=== PATIENT | male | born 1975 | race Caucasian/White ===

== ENCOUNTER 2016-11-28 15:53 | Emergency (ER) | payer OTHER ==
[~2016-11-28] VITALS: Ht 175.3 cm; Wt 106.6 kg
[~2016-11-28 15:53] MED LIST: FLOMAX0.4 MG PO; LAMICTAL 25 MG25 M1; NOHOMEMEDICATIONS; NORCO 5-325 TA1 EACH PO; PHENERGAN 25 MG25 M1 PO; PRILOSEC40 MG PO; TAMSULOSIN HCL0.4 M1 PER TUBE; TORADOL 10 MG T10 MG PO; WELLBUTRIN SR150 MG PO
[2016-11-28 16:32] LABS: URINE BILIRUBIN NEGATIVE (Negative); URINE BLOOD 2+ (Negative); URINE COLOR YELLOW; URINE GLUCOSE-RANDOM* NEGATIVE (Negative); URINE KETONES NEGATIVE (Negative); URINE NITRITE NEGATIVE (Negative); URINE PROTEIN (DIPSTICK) NEGATIVE (Negative); URINE SPECIFIC GRAVITY 1.025 (1.003-1.035); URINE UROBILINOGEN 0.2 E.U./dl (0.2-1.0)
[2016-11-28 16:47] LABS: BACTERIA 1-9 Few /HPF (None Seen); CASTS None Seen /LPF (None Seen); CRYSTALS None Seen /LPF (None Seen); SQUAMOUS 0-3 Few /LPF (0-3); URINE WBC None Seen /HPF (0-5)
[2016-11-28 16:49] LABS: ABSOLUTE NEUTROPHILS 9.6 thou/uL (1.4-8.2); BASOPHILS 0.7 % (0.0-2.0); EOSINOPHILS 1.9 % (0.0-3.0); HEMATOCRIT 45.4 % (42.0-52.0); HEMOGLOBIN 15.7 gm/dL (14.0-18.0); MCH 27.9 pg (26.0-34.0); MCHC 34.7 g/dL (28.0-37.0); MCV 80.5 fL (80.0-100.0); PLATELET COUNT 260 thou/uL (150-400); POLYS 77.4 % (36.0-66.0); RBC 5.64 mil/uL (4.50-6.00); RDW 13.7 % (10.5-14.5); WBC 12.4 thou/uL (4.0-11.0)
[2016-11-28 16:50] LABS: MANUAL DIFF NO
[2016-11-28 16:53] LABS: CALCIUM 9.5 mg/dL (8.5-10.1); CREATININE 1.4 mg/dL (0.7-1.3); POTASSIUM 3.7 mmol/L (3.5-5.1)
[2016-11-28] MEDS ORDERED: PRILOSEC OTC20 MG PO (17:22)
[2016-11-28] MEDS ORDERED: NORCO 5-325 TA1 EACH PO (17:30)
[2016-11-28] MEDS ORDERED: FLOMAX0.4 MG PO (17:34)
[2016-11-28] MEDS ORDERED: PHENAZOPYRIDIN200 M2 PO (17:34)
[2016-11-28 17:57] VITALS: BP 144/57
== END 2016-11-28 17:57 | disposition home or self-care (01) ==
LOC: ER 15:53
PROVIDERS: Physician Assistant
DX: N20.0 Calculus of kidney (principal); Z88.1 Allergy status to other antibiotic agents; Z88.8 Allergy status to other drugs, medicaments and biological substances

== ENCOUNTER 2019-08-15 09:19 | Emergency (ER) | payer OTHER ==
[~2019-08-15] VITALS: Ht 175.3 cm; Wt 88.5 kg
[~2019-08-15 09:19] MED LIST changes: +PHENAZOPYRIDIN200 M2 PO; +PRILOSEC OTC20 MG PO
[2019-08-15 09:54] LABS: HEMATOCRIT 47.4 % (42.0-52.0); HEMOGLOBIN 15.7 gm/dL (14.0-18.0); MCH 27.8 pg (26.0-34.0); MCV 84.2 fL (80.0-100.0); RBC 5.63 mil/uL (4.50-6.00); RDW 13.2 % (10.5-14.5); WBC 5.3 thou/uL (4.0-11.0)
[2019-08-15 10:00] LABS: URINE BILIRUBIN NEGATIVE (Negative); URINE BLOOD 3+ (Negative); URINE CLARITY CLEAR; URINE COLOR YELLOW; URINE GLUCOSE-RANDOM* NEGATIVE (Negative); URINE KETONES NEGATIVE (Negative); URINE LEUKOCYTES-REFLEX NEGATIVE (Negative); URINE NITRITE-REFLEX NEGATIVE (Negative); URINE PROTEIN (DIPSTICK) 2+ (Negative); URINE SPECIFIC GRAVITY >= 1.030 (1.005-1.035)
[2019-08-15 10:00] LABS: CALCIUM 8.8 mg/dL (8.5-10.1); CREATININE 1.2 mg/dL (0.7-1.3); POTASSIUM 3.1 mmol/L (3.5-5.1)
[2019-08-15 11:03] LABS: SQUAMOUS 0-3 Few /LPF (0-3)
[2019-08-15 11:04] LABS: BACTERIA-REFLEX None Seen /HPF (None Seen); CASTS None Seen /LPF (None Seen); MUCUS >6 Heavy strn/LPF (None Seen); URINE RBC 0-2 Rare /HPF (0-2); URINE WBC-REFLEX 0-5 Rare /HPF (0-5)
[2019-08-15 11:05] LABS: CALCIUM OXALATE 4-10 Moderate /LPF (None Seen)
[2019-08-15] MEDS ORDERED: NORCO 5-325 TA1 EAC1 PO (12:29)
[2019-08-15] MEDS ORDERED: FLOMAX0.4 MG PO (12:29)
[2019-08-15] MEDS ORDERED: IBUPROFEN 600600 M1 PO (12:29)
[2019-08-15] MEDS ORDERED: ZOFRAN ODT4 MG PO (12:29)
[2019-08-15 13:48] VITALS: BP 117/75
== END 2019-08-15 13:52 | disposition home or self-care (01) ==
LOC: ER 09:19
PROVIDERS: Emergency Medicine Emergency Medical Services
DX: N20.1 Calculus of ureter (principal); Z87.442 Personal history of urinary calculi; Z98.52 Vasectomy status; Z88.1 Allergy status to other antibiotic agents